=== PATIENT | male | born 1980 | race Caucasian/White ===

== ENCOUNTER 2017-11-27 11:26 | Emergency (ER) | payer OTHER ==
[~2017-11-27] VITALS: Ht 172.7 cm; Wt 120.2 kg
[2017-11-27] MEDS ORDERED: KETOROLAC TROMETHAMINE 30 MG/ML VIAL IM STA (11:34)
[2017-11-27] MEDS ORDERED: CYCLOBENZAPRINE HCL 10 MG TAB PO ONE (11:45)
[2017-11-27] MEDS ORDERED: HYDROCODONE/APAP 10MG-325MG TAB PO ONE (11:45)
[2017-11-27] MEDS ORDERED: DEXAMETHASONE SOD PHOS 10 MG/1 ML VIAL INJ ONE (12:30)
== END 2017-11-27 12:21 | disposition home or self-care (01) ==
LOC: ER 11:26
DX: M54.5 Low back pain (principal); S39.012A Strain of muscle, fascia and tendon of lower back, initial encounter
CPT/HCPCS: 99283; J1100; J1885

== ENCOUNTER 2018-12-05 22:03 | Observation (INO) | payer OTHER ==
[~2018-12-05] VITALS: Ht 172.7 cm; Wt 117.5 kg
--- OUTSIDE RECORDS SUMMARY | 2018-12-05 22:47 | XMS REPORT ---
Author Author [facility] Address Unknown Phone Unavailable Care Team Providers Care White Sugar Supervisor Name Role Phone Unavailable Unavailable Problems This patient has no known problems. Allergies, Adverse Reactions, Alerts This patient has no known allergies or adverse reactions. Medications This patient has no known medications. Encounters Start Date/Time End Date/Time Encounter Type Admission Type Attending Clinicians [facility] Facility Care Department Encounter ID 2016-09-21 00:00:00 2016-09-21 00:00:00 Outpatient [facility] [id number]
--- NOTE | 2018-12-05 22:50 | NUR ---
Patient was seen at [facility], admitted for foreign body lodged in throat. He is awake, alert and able to make needs known. Mom at the bedside. Vital signs are stable. POC discussed. He is currently NPO. Dr. Niki Garcia rounding and aware he is consulted. Charge nurse obtained further orders from him. Per Dr. Niki Garcia, Dr. Gianni Garcia is aware of admission. Will continue to monitor.
[2018-12-05] MEDS ORDERED: PANTOPRAZOLE 40 MG 10ML VIAL IV STA (22:58)
[2018-12-05] MEDS ORDERED: ONDANSETRON HCL INJ 2MG/ML 2ML 2 MG/ML VIAL IV PRN (23:00)
[2018-12-05 23:19] VITALS: BP 124/69
[2018-12-05 23:24] VITALS: BP 124/69
[2018-12-05 23:31] LABS: BASOPHILS # (AUTO) 0.1 (0.0-0.1); BASOPHILS % 0.5 % (0.0-1.0); EOSINOPHILS # (AUTO) 0.4 (0.0-0.4); EOSINOPHILS % 2.7 % (0.0-6.0); HEMATOCRIT 42.9 % (38.2-49.6); LYMPHOCYTES # (AUTO) 2.1 (1.0-3.2); LYMPHOCYTES % 15.8 % (18.0-39.1); MEAN CORPUSCULAR HEMOGLOBIN 29.7 pg (28-32); MEAN CORPUSCULAR HGB CONC 32.6 g/dL (31-35); MEAN CORPUSCULAR VOLUME 91.1 fL (81-99); MONOCYTES # (AUTO) 1.4 (0.2-0.8); MONOCYTES % 10.2 % (4.4-11.3); NEUTROPHILS # (AUTO) 9.6 (2.1-6.9); NEUTROPHILS % 70.5 % (38.7-80.0); PLATELET COUNT 254 x10e3/uL (140-360); RED BLOOD COUNT 4.71 x10e6/uL (4.3-5.7); RED CELL DISTRIBUTION WIDTH 13.5 % (11.7-14.4)
[2018-12-05 23:41] LABS: INR 0.97; PARTIAL THROMBOPLASTIN TIME 28.2 seconds (23.8-35.5); PROTHROMBIN TIME 13.4 seconds (11.9-14.5)
[2018-12-05 23:50] LABS: ALANINE AMINOTRANSFERASE 40 IU/L (0-55); ALBUMIN 4.2 g/dL (3.5-5.0); ALBUMIN/GLOBULIN RATIO 1.5 (0.8-2.0); ALKALINE PHOSPHATASE 70 IU/L (40-150); ANION GAP 14.8 mmol/L (8-16); BLOOD UREA NITROGEN 13 mg/dL (7-26); BUN/CREATININE RATIO 14 (6-25); CALCIUM 9.4 mg/dL (8.4-10.2); CARBON DIOXIDE 23 mmol/L (22-29); CHLORIDE 109 mmol/L (98-107); CREATININE, SERUM 0.92 mg/dL (0.72-1.25); EST GLOMERULAR FILTRATION RATE > 60 ML/MIN (60-); GLUCOSE 112 mg/dL (74-118); POTASSIUM 3.8 mmol/L (3.5-5.1); SODIUM 143 mmol/L (136-145)
[2018-12-06] VITALS (8 sets, daily range): BP systolic 109–128; BP diastolic 55–70
--- NOTE | 2018-12-06 02:00 | NUR ---
Dr. Niki Garcia at the bedside making rounds, explained in detail planned procedure, and all questions answered at this time by .
[2018-12-06] MEDS: DEXTROSE 5%/LACTATED RINGERS 1,000 ML IV SCH ×3 (02:37→16:29)
--- NOTE | 2018-12-06 07:20 | NUR ---
RECEIVED PATIENT RESTING IN BED NO S/S OF DISTRESS. BED LOW, WHEELS LOCKED, SIDE RAILS X2. CALL LIGHT IN REACH WILL CONTINUE TO MONITOR PATIENT.
[2018-12-06] MEDS: PANTOPRAZOLE 40 MG 10ML VIAL IV SCH ×2 (07:41→16:21)
--- NOTE | 2018-12-06 09:00 | NUR ---
Spoke to Dr. Garcia regarding POC. States pt should be in observation. Will have EGD today and possibly discharge today.
--- NOTE | 2018-12-06 09:45 | NUR ---
PATIENT A/O X3, EVEN RESPIRATIONS ON RA. LUNG SOUNDS CLEAR TO AUSCULTATION. BOWEL SOUNDS PRESENT. LEFT FA 20 GAUGE IV WITH IVF @ 125 CC/HR. PATIENT NPO FOR EGD TODAY. NO PAIN OR DISCOMFORT AT THIS TIME. CALL LIGHT IN REACH WILL CONTINUE TO MONITOR PATIENT.
--- NOTE | 2018-12-06 13:25 | NUR ---
EMPTED TO PREFORM DPA, PATIENT NOT IN ROOM
--- NOTE | 2018-12-06 14:18 | NUR ---
PATIENT BACK FROM EGD. ORDER FOR FULL LIQUID DIET. CALL LIGHT IN REACH, WILL CONTINUE TO MONITOR PATIENT.
--- NOTE | 2018-12-06 15:22 | Operative Report ---
DATE OF PROCEDURE: 12/06/2018 SURGEON: Sukhjinder Garcia MD PROCEDURES: EGD with foreign body removal, biopsies and esophageal dilatation. INDICATIONS FOR EGD: Dysphagia to solids, nausea, and vomiting. MEDICATIONS: The patient was done under MAC, please see anesthesiologist's note. PROCEDURE IN DETAIL: With the patient in the left lateral decubitus position, a flexible fiberoptic Olympus gastroscope was introduced into the esophagus under direct visualization without any difficulty. Multiple concentric rings were noted and some longitudinal furrows compatible with eosinophilic esophagitis. A large meat bolus was noted in the distal esophagus that gravitated gradually into the stomach after distention of the esophagus. The GE junction was nodular and friable. Esophagus was then dilated to size 48-[place] Wade. The scope was then advanced with ease into the stomach and mucosa overlying the antrum and the body revealed some patchy erythema and [id number] edema, and biopsies were obtained and sent to stain for H. pylori. The pylorus was of normal contour and shape, it was intubated with ease and the scope was advanced all the way to the second portion of the duodenum. The scope was then withdrawn slowly, mucosa overlying the proximal, second portion and duodenal bulb appeared to be within normal limits. The scope was then withdrawn back into the stomach and retroflexed, mucosa overlying the fundus appeared to be within normal limits. The cardia appeared somewhat friable. The scope was then straightened out, it was subsequently withdrawn, and the patient tolerated the procedure well. IMPRESSION: 1. Meat bolus in distal esophagus, gravitated to stomach after insufflation of the esophagus. 2. Eosinophilic esophagitis. 3. Esophageal stricture dilated to size 48-[place] Wade. 4. GE junction nodular and friable. 5. Gastritis, biopsied, biopsies sent to stain for Helicobacter pylori. PLAN: Follow up histology. Continue current therapy. The patient will need a repeat EGD electively with additional dilatation. Sukhjinder Garcia MD [facility] – [place], [place]/MODL /[id number] cc: German Garcia MD
[2018-12-06] MEDS ORDERED: PROPOFOL IV EMULSION 10 MG/ML 50 ML VIAL ONE (18:23)
[2018-12-06] MEDS ORDERED: METOCLOPRAMIDE HCL 10 MG/2ML VIAL ONE (18:23)
[2018-12-06] MEDS ORDERED: MIDAZOLAM HCL 2 MG/2 ML VIAL ONE (18:48)
[2018-12-06] MEDS ORDERED: FENTANYL CITRATE/PF 100MCG/2 ML INJ ONE (18:48)
--- NOTE | 2018-12-06 19:00 | NUR ---
Walking rounds done. Patient is awake, alert and able to make needs known. Patient voiced he would like to be discharged so he can work tomorrow. Will page Dr. Vera for further orders.
--- NOTE | 2018-12-06 21:10 | NUR ---
Dr. Garcia not returned phone call. When to notify patient but he is sleeping at this time.
[2018-12-07 00:16] VITALS: BP 93/49
--- NOTE | 2018-12-07 02:00 | NUR ---
Dr. Vera making rounds. Per MD bishop patient eat sandwich without any difficulty. Patient may go home per Dr. Niki Garcia's standpoint. patient needs to follow up in 10 days in office with Dr.M. Garcia.
[2018-12-07] MEDS: DEXTROSE 5%/LACTATED RINGERS 1,000 ML IV SCH (02:35)
[2018-12-07 03:47] VITALS: BP 83/45
[2018-12-07 05:05] VITALS: BP 96/54
--- NOTE | 2018-12-07 07:16 | NUR ---
RECEIVED PATIENT ASLEEP IN BED NO S/S OF DISTRESS. BED LOW, WHEELS LOCKED, SIDE RAILS X2. CALL LIGHT IN REACH WILL CONTINUE TO MONITOR PATIENT.
[2018-12-07] MEDS ORDERED: PANTOPRAZOLE SO40 MG PO (07:27)
--- NOTE | 2018-12-07 07:45 | NUR ---
REMOVED PATIENTS IV. CATHETER TIP INTACT AND PRESSURE DRESSING APPLIED.
[2018-12-07 07:55] VITALS: BP 109/66
[2018-12-07 08:12] VITALS: BP 109/66
--- NOTE | 2018-12-07 08:34 | NUR ---
PATIENT DISCHARGED FROM FACILITY. PATIENT GATHERED ALL PERSONAL BELONGINGS, DISCHARGE INSTRUCTIONS, AND FOLLOW UP INFORMATION. LEFT UNIT IN WHEELCHAIR AND WENT HOME VIA PRIVATE AUTO. NO SIGNS OF DISTRESS WHEN LEAVING FACILITY.
== END 2018-12-07 08:35 | disposition home or self-care (01) ==
LOC: MED/SURG 22:45 → INTOOBSV 22:45
DX: T18.128A Food in esophagus causing other injury, initial encounter (principal); F17.210 Nicotine dependence, cigarettes, uncomplicated; F10.10 Alcohol abuse, uncomplicated; K20.0 Eosinophilic esophagitis; K22.2 Esophageal obstruction; K29.70 Gastritis, unspecified, without bleeding
CPT/HCPCS: 36415; 43239; 43247; 43450; 80053; 85025; 85610; 85730; 88305; 88312; C9113 ×2; G0378 ×3; J2250; J2704; J2765; J3010; J7121 ×2

== ENCOUNTER 2021-09-01 17:58 | Emergency (ER) | payer OTHER ==
[~2021-09-01] VITALS: Ht 172.7 cm; Wt 117.5 kg
[~2021-09-01 17:58] MED LIST: PANTOPRAZOLE SO40 MG PO
[2021-09-01] MEDS ORDERED: NAPROXEN250 MG PO (22:42)
== END 2021-09-01 22:46 | disposition home or self-care (01) ==
LOC: ER 18:15
DX: R07.89 Other chest pain (principal); V23.4XXA Motorcycle driver injured in collision with car, pick-up truck or van in traffic accident, initial encounter; Y92.488 Other paved roadways as the place of occurrence of the external cause
CPT/HCPCS: 71045; 99283